=== PATIENT | male | born 1935 | race Hispanic/Latino ===

== ENCOUNTER 2018-02-12 15:38 | Observation (INO) | payer MEDICARE ==
[2018-02-12 15:39] VITALS: BMI 24.9
[2018-02-12] MEDS ORDERED: Sodium Chloride 0.9% 1,000 ML IV STA ×3 (16:26→20:42)
[2018-02-12 16:57] LABS: VENOUS BLOOD GAS BASE EXCESS -1.7 mmol/L (0.0-2.0); VENOUS BLOOD GAS PCO2 38 mmHg (40-60); VENOUS BLOOD GAS PO2 36 mm/Hg (30-55); VENOUS BLOOD PH 7.39 (7.32-7.43)
--- NOTE | 2018-02-12 17:04 | RAD ---
HISTORY: weakness COMPARISON: No prior. FINDINGS: LUNGS: The lungs are well inflated. There is left basilar airspace disease. PLEURA: There is blunting of the left costophrenic angle. No significant right pleural effusion identified, no pneumothorax apparent. CARDIOVASCULAR: Normal. OSSEOUS STRUCTURES: No significant abnormalities. VISUALIZED UPPER ABDOMEN: Normal. OTHER FINDINGS: None. IMPRESSION: Left basilar airspace disease may represent atelectasis or pneumonia. Suspect small left pleural effusion. Follow-up PA and lateral radiographs after medical management are recommended to ensure complete resolution.
--- NOTE | 2018-02-12 17:08 | ED PDOC ---
HPI: General Adult Time Seen by Provider: 02/12/18 16:15 Chief Complaint (Nursing): Headache Chief Complaint (Provider): Headache History Per: Patient History/Exam Limitations: no limitations Onset/Duration Of Symptoms: Days (x2 days) Current Symptoms Are (Timing): Still Present Additional Complaint(s): 82 y/o male presents to the ED complaining of headache and generalized weakness , progressive for last 2 days. Reports that he is lightheaded at times and might pass out due to poor appetite. Also reports chills but no outright fever. Has urinary frequency and excessive thirst. Two days ago he underwent chemo therapy, which he has been in for last 2 months, for lung cancer. Sugar was very high at home (accucheck -500). Denies any further medical complaints. PMD: Aakash Amado MD Past Medical History Reviewed: Historical Data, Nursing Documentation, Vital Signs Vital Signs: Last Vital Signs Temp 98.6 F 02/12/18 15:58 Pulse 107 H 02/12/18 15:58 Resp 23 02/12/18 15:58 BP 160/95 H 02/12/18 15:58 Pulse Ox 98 02/12/18 17:14 - Medical History PMH: Diabetes, HTN, Hypercholesterolemia Other PMH: Lung cancer - Surgical History Other surgeries: Lung surgery, skin biposy, kidney transplant - Family History Family History: States: Unknown Family Hx - Social History Current smoker - smoking cessation education provided: No Alcohol: None Drugs: Denies - Immunization History Hx Tetanus Toxoid Vaccination: No Hx Influenza Vaccination: No Hx Pneumococcal Vaccination: No - Home Medications Home Medications: Ambulatory Orders Medication Instructions Recorded Aspirin 81 mg PO DAILY 09/03/14 Atorvastatin [Lipitor] 20 mg PO DAILY 09/03/14 Clopidogrel [Plavix] 75 mg PO DAILY 09/03/14 Fenofibrate Nanocrystallized 48 mg PO DAILY 09/03/14 [Fenofibrate] Insulin Human NPH/Reg [HumuLIN 30 units SC ACBD 09/03/14 70/30 (NPH/Reg)] Labetalol HCl 150 mg PO BID 09/03/14 Nifedipine [Nifedipine ER] 30 mg PO QPM 09/03/14 Cilostazol [Pletal] 100 mg PO DAILY 07/24/17 Tacrolimus [Prograf Cap] 1 mg PO DAILY 09/17/17 Ciprofloxacin [Cipro] 500 mg PO BID #10 tab 08/10/17 - Allergies Allergies/Adverse Reactions: Allergies Allergy/AdvReac Type Severity Reaction Status Date / Time EGG Allergy ITCHING Verified 08/04/17 15:58 Penicillins Allergy Verified 08/04/17 15:58 Review of Systems ROS Statement: Except As Marked, All Systems Reviewed And Found Negative (As per HPI, otherwise negative) Constitutional: Positive for: Weakness (generalized), Other (loss of appetite) ENT: Positive for: Other (excessive thirst) Genitourinary Male: Positive for: Frequency Neurological: Positive for: Headache, Other (lightheadedness) Physical Exam - Reviewed Nursing Documentation Reviewed: Yes Vital Signs Reviewed: Yes - Physical Exam Appears: Positive for: Non-toxic, No Acute Distress (tired appearing) Skin: Positive for: Warm, Dry, Pallor Eye Exam: Positive for: EOMI, PERRL ENT: Positive for: Pharynx Is (clear), Other (Dry mucous membranes) Neck: Positive for: Painless ROM, Supple Cardiovascular/Chest: Positive for: Regular Rate, Rhythm, Tachycardia. Negative for: Murmur Respiratory: Positive for: Normal Breath Sounds. Negative for: Wheezing Gastrointestinal/Abdominal: Positive for: Soft. Negative for: Tenderness Back: Positive for: Normal Inspection. Negative for: Decreased ROM Extremity: Positive for: Normal ROM. Negative for: Deformity Lymphatic: Negative for: Adenopathy Neurologic/Psych: Positive for: Alert. Negative for: Motor/Sensory Deficits - Laboratory Results Result Diagrams: 02/12/18 16:40 02/12/18 16:40 - ECG ECG Rhythm: Positive for: Sinus Tachycardia, Right Bundle Branch Block O2 Sat by Pulse Oximetry: 98 (RA) Pulse Ox Interpretation: Normal - Radiology X-Ray: Interpreted by Me Medical Decision Making Medical Decision Making: Time: 16:41 Initial Impression: Weakness and hyperglycemia Differential diagnosis: DKA, dehydration, electrolyte abnormality,sepsis, UTI Plan: Type and Screen EKG BNP CMP Lipase Magnesium Phosphorous Troponin I CBC w/ differential PTT Prothrombin Time Chest x-ray Sodium chloride 1L IV Blood culture Urine culture quality assurance monitor IN insertion Influenza A B Urinalysis Reevaluation 1830 Hyperglycemia and tachycardia persist. Additional fluid ordered. 2030 Labs demonstrated hyperglycemia with no ketosis or acidosis. Persistent tachycardia and hyperglycemia despite 2L IVF. Needs hospitalization for continued hydration and glucose control ALEXANDRE pt findings and plan of care. ALEXANDRE Beltran WAREHOUSE ADMINISTRATIVE ASSISTANT for [facility] Scribe Attestation: Documented by Ryan Milner acting as a scribe for Kriss Gamez MD. Scribe Attestation: All medical record entries made by the Scribe were at my direction and personally dictated by me. I have reviewed the chart and agree that the record accurately reflects my personal performance of the history, physical exam, medical decision making, and the department course for this patient. I have also personally directed, reviewed, and agree with the discharge instructions and disposition. Disposition - Clinical Impression Clinical Impression: Dehydration, Hyperglycemia Counseled Patient/Family Regarding: Studies Performed, Diagnosis - Disposition Disposition Time: 20:30 Condition: FAIR - Pt Status Changed To: Hospital Disposition Of: Observation - POA Present On Arrival: Poor Glycemic Control
[2018-02-12 17:16] LABS: BASO % 0.5 % (0.0-2.0); EOS # 0.1 K/uL (0.0-0.7); EOS % 0.7 % (0.0-4.0); HEMOGLOBIN 11.6 g/dL (12.0-18.0); LYMPH # 0.8 K/uL (1.0-4.3); LYMPH % 9.3 % (20.0-40.0); MEAN CELL VOLUME 86.2 fl (80.0-94.0); MEAN CORPUSCULAR HEMOGLOBIN 28.6 pg (27.0-31.0); MEAN CORPUSCULAR HGB CONC 33.2 g/dL (33.0-37.0); MEAN PLATELET VOLUME 8.2 fl (7.2-11.7); MONO # 0.1 K/uL (0.0-0.8); MONO % 1.3 % (0.0-10.0); NEUT # 7.2 K/uL (1.8-7.0); NEUT % 88.2 % (50.0-75.0); PLATELET COUNT 338 K/uL (130-400); RBC 4.07 Mil/uL (4.40-5.90); RED CELL DISTRIBUTION WIDTH 19.2 % (11.5-14.5); WHITE BLOOD COUNT 8.1 K/uL (4.8-10.8)
[2018-02-12 17:33] LABS: B-TYPE NATRIURETIC PEPTIDE 532 pg/ml (0-900)
[2018-02-12 17:38] LABS: INR 1.3 (0.9-1.2); PARTIAL THROMBOPLASTIN TIME 29.5 Seconds (25.6-37.1)
[2018-02-12 18:01] LABS: ALB/GLOB RATIO 1.1 (1.0-2.1); ALBUMIN 3.6 g/dL (3.5-5.0); ALT/SGPT 60 U/L (21-72); AST/SGOT 36 U/L (17-59); BLOOD UREA NITROGEN 22 mg/dl (9-20); CALCIUM 9.1 mg/dL (8.4-10.2); GFR AFRICAN-AMERICAN > 60; GFR NON-AFRICAN AMERICAN > 60; LIPASE 31 U/L (23-300)
[2018-02-12 18:11] LABS: ANISOCYTOSIS SLIGHT; BANDS 2 % (0-2); LYMPHOCYTE 7 % (20-50); NEUTROPHIL 89 % (42-75); PLATELET ESTIMATE NORMAL (NORMAL); POIKILOCYTOSIS SLIGHT; REACTIVE LYMPHOCYTES 2 % (0-0); TOTAL CELLS COUNTED 100
[2018-02-12 18:12] LABS: HYPOCHROMIC SLIGHT; OVALOCYTES SLIGHT
[2018-02-12 18:13] LABS: STOMATOCYTES SLIGHT; TARGET CELLS SLIGHT
[2018-02-12 18:14] LABS: ROULEAUX FORMATION SLIGHT; TEARDROP CELLS SLIGHT; TOXIC GRANULATION PRESENT
[2018-02-12 18:14] LABS: SQUAMOUS EPITHIAL < 1 /hpf (0-5); URINE BILIRUBIN NEGATIVE (NEGATIVE); URINE BLOOD NEGATIVE (NEGATIVE); URINE CLARITY CLEAR (Clear); URINE COLOR YELLOW (YELLOW); URINE GLUCOSE (UA) >=500 mg/dL (Normal); URINE LEUKOCYTE ESTERASE NEG Leu/uL (Negative); URINE PROTEIN NEGATIVE (NEGATIVE); URINE UROBILINOGEN 0.2-1.0 mg/dL (0.2-1.0)
[2018-02-12] MEDS: Sodium Chloride 0.9% 1,000 ML IV SCH (21:30)
[2018-02-12] MEDS: Insulin Regular 100 units/ml SC SCH (23:02)
[2018-02-13 00:36] VITALS: RESP 19; O2SAT 96
[2018-02-13 07:19] LABS: BASO % 0.6 % (0.0-2.0); EOS # 0.1 K/uL (0.0-0.7); EOS % 0.9 % (0.0-4.0); HEMOGLOBIN 10.3 g/dL (12.0-18.0); LYMPH # 0.7 K/uL (1.0-4.3); LYMPH % 11.5 % (20.0-40.0); MEAN CELL VOLUME 85.8 fl (80.0-94.0); MEAN CORPUSCULAR HEMOGLOBIN 28.5 pg (27.0-31.0); MEAN CORPUSCULAR HGB CONC 33.2 g/dL (33.0-37.0); MEAN PLATELET VOLUME 7.9 fl (7.2-11.7); MONO # 0.1 K/uL (0.0-0.8); MONO % 1.9 % (0.0-10.0); NEUT # 5.1 K/uL (1.8-7.0); NEUT % 85.1 % (50.0-75.0); NRBC % 0.1 % (0.0-0.0); RBC 3.62 Mil/uL (4.40-5.90); RED CELL DISTRIBUTION WIDTH 19.5 % (11.5-14.5)
[2018-02-13] MEDS ORDERED: INSULIN REGULAR SC SCH (07:30)
[2018-02-13] MEDS ORDERED: INSULIN ISOPHANE SC SCH (07:30)
[2018-02-13 07:36] LABS: ALBUMIN 3.1 g/dL (3.5-5.0); ALT/SGPT 53 U/L (21-72); AST/SGOT 28 U/L (17-59); BLOOD UREA NITROGEN 14 mg/dl (9-20); CALCIUM 8.4 mg/dL (8.4-10.2); GFR AFRICAN-AMERICAN > 60; GFR NON-AFRICAN AMERICAN > 60
--- NOTE | 2018-02-13 08:01 | CP.PCM.HP ---
History of Present Illness - History of Present Illness History of Present Illness: pt admitted for hyperglycemia/dehydration/weakness. pt is going under chemo for lung mass which last dose was 2 days ago. on steroids for same. at present pt denies weakness, pt also c/o left fore arm sweling, tenderness, erythemaor any other complaints. no f/c n/v/d. bw noted. am labs pending. Present on Admission - Present on Admission Any Indicators Present on Admission: Yes History of Uncontrolled Diabetes: Yes Review of Systems - Constitutional Constitutional: As Per HPI, Weakness - Integumentary Integumentary: As Per HPI, Erythema Past Patient History - Infectious Disease Hx of Infectious Diseases: None - Past Medical History & Family History Past Medical History?: Yes - Past Social History Smoking Status: Never Smoked - CARDIAC Hx Cardiac Disorders: Yes Hx Hypercholesterolemia: Yes Hx Hypertension: Yes - PULMONARY Hx Respiratory Disorders: No Hx Lung Cancer: Yes - NEUROLOGICAL Hx Neurological Disorder: No - HEENT Hx HEENT Problems: No - RENAL Other/Comment: TRANSPLANT R KIDNEY - ENDOCRINE/METABOLIC Hx Diabetes Mellitus Type 1: Yes - HEMATOLOGICAL/ONCOLOGICAL Hx Blood Disorders: No Hx Chemotherapy: Yes - INTEGUMENTARY Hx Dermatological Problems: No Other/Comment: skin biopsy - MUSCULOSKELETAL/RHEUMATOLOGICAL Hx Musculoskeletal Disorders: Yes (GOUT) Hx Falls: No Hx Gout: Yes - GASTROINTESTINAL Hx Gastrointestinal Disorders: No Hx Gastroesophageal Reflux: Yes - GENITOURINARY/GYNECOLOGICAL Hx Genitourinary Disorders: Yes - PSYCHIATRIC Hx Psychophysiologic Disorder: No Hx Substance Use: No - SURGICAL HISTORY Hx Cataract Extraction: Yes (RIGHT EYE) Hx Kidney Transplant: Yes (right kidney transplant) - ANESTHESIA Hx Anesthesia: Yes Hx Anesthesia Reactions: No Hx Malignant Hyperthermia: No Meds Allergies/Adverse Reactions: Allergies Allergy/AdvReac Type Severity Reaction Status Date / Time EGG Allergy ITCHING Verified 08/04/17 15:58 Penicillins Allergy Verified 08/04/17 15:58 Physical Exam - Constitutional Appears: Well, Non-toxic, No Acute Distress - Head Exam Head Exam: ATRAUMATIC, NORMAL INSPECTION, NORMOCEPHALIC - Eye Exam Eye Exam: EOMI, Normal appearance, PERRL Pupil Exam: NORMAL ACCOMODATION, PERRL - ENT Exam ENT Exam: Mucous Membranes Moist, Normal Exam - Neck Exam Neck exam: Positive for: Normal Inspection - Respiratory Exam Respiratory Exam: Clear to Auscultation Bilateral, NORMAL BREATHING PATTERN - Cardiovascular Exam Cardiovascular Exam: REGULAR RHYTHM, RRR, +S1, +S2 - GI/Abdominal Exam GI & Abdominal Exam: Normal Bowel Sounds, Soft. absent: Tenderness - Extremities Exam Extremities exam: Positive for: full ROM, normal capillary refill, normal inspection, pedal pulses present Additional comments: erythema/swelling to left forearm - Back Exam Back exam: FULL ROM, NORMAL INSPECTION - Neurological Exam Neurological exam: Alert, CN II-XII Intact, Normal Gait, Oriented x3, Reflexes Normal - Psychiatric Exam Psychiatric exam: Normal Affect, Normal Mood - Skin Skin Exam: Dry, Intact, Normal Color, Warm Results - Vital Signs Recent Vital Signs: Last Vital Signs Temp 99.0 F 02/13/18 00:00 Pulse 99 H 02/13/18 00:00 Resp 19 02/13/18 00:00 BP 103/72 02/13/18 00:00 Pulse Ox 96 02/13/18 00:00 - Labs Result Diagrams: 02/13/18 05:30 02/13/18 05:30 Labs: Laboratory Results - last 24 hr 02/12/18 02/12/18 02/12/18 16:17 16:40 16:40 WBC 8.1 RBC 4.07 L Hgb 11.6 L Hct 35.1 MCV 86.2 MCH 28.6 MCHC 33.2 RDW 19.2 H Plt Count 338 MPV 8.2 Neut % (Auto) 88.2 H Lymph % (Auto) 9.3 L [place] % (Auto) 1.3 Eos % (Auto) 0.7 Baso % (Auto) 0.5 Neut # (Auto) 7.2 H Lymph # (Auto) 0.8 L [place] # (Auto) 0.1 Eos # (Auto) 0.1 Baso # (Auto) 0.0 Neutrophils % (Manual) 89 H Band Neutrophils % 2 Lymphocytes % (Manual) 7 L Reactive Lymphs % 2 H Monocytes % (Manual) TEST NOT PERFORMED Toxic Granulation Present Platelet Estimate Normal Hypochromasia (manual) Slight Poikilocytosis (manual Slight Anisocytosis (manual) Slight Target Cells Slight Tear Drop Cells Slight Ovalocytes Slight Stomatocytes Slight Rouleaux Slight PT INR APTT pO2 VBG pH VBG pCO2 VBG HCO3 VBG Total CO2 VBG O2 Sat (Calc) VBG Base Excess VBG Potassium Glucose Lactate FiO2 Sodium 134 Potassium 4.3 Chloride 100 Carbon Dioxide 19 L Anion Gap 19 BUN 22 H Creatinine 0.8 Est GFR ( Amer) > 60 Est GFR (Non-Af Amer) > 60 POC Glucose (mg/dL) 442 H* Random Glucose 506 H* Calcium 9.1 Phosphorus 2.4 L Magnesium 1.6 Total Bilirubin 0.9 AST 36 ALT 60 Alkaline Phosphatase 100 Troponin I < 0.0120 NT-Pro-B Natriuret Pep 532 Total Protein 6.8 Albumin 3.6 Globulin 3.2 Albumin/Globulin Ratio 1.1 Lipase 31 Venous Blood Potassium Urine Color Urine Clarity Urine pH Ur Specific [place] Urine Protein Urine Glucose (UA) Urine Ketones Urine Blood Urine Nitrate Urine Bilirubin Urine Urobilinogen Ur Leukocyte Esterase Urine RBC (Auto) Urine Microscopic WBC Ur Squamous Epith Cells Influenza Typ A,B (EIA) Blood Type Antibody Screen BBK History Checked 02/12/18 02/12/18 02/12/18 16:40 16:40 16:40 WBC RBC Hgb Hct MCV MCH MCHC RDW Plt Count MPV Neut % (Auto) Lymph % (Auto) [place] % (Auto) Eos % (Auto) Baso % (Auto) Neut # (Auto) Lymph # (Auto) [place] # (Auto) Eos # (Auto) Baso # (Auto) Neutrophils % (Manual) Band Neutrophils % Lymphocytes % (Manual) Reactive Lymphs % Monocytes % (Manual) Toxic Granulation Platelet Estimate Hypochromasia (manual) Poikilocytosis (manual Anisocytosis (manual) Target Cells Tear Drop Cells Ovalocytes Stomatocytes Rouleaux PT 15.0 H INR 1.3 H APTT 29.5 pO2 VBG pH VBG pCO2 VBG HCO3 VBG Total CO2 VBG O2 Sat (Calc) VBG Base Excess VBG Potassium Glucose Lactate FiO2 Sodium Potassium Chloride Carbon Dioxide Anion Gap BUN Creatinine Est GFR ( Amer) Est GFR (Non-Af Amer) POC Glucose (mg/dL) Random Glucose Calcium Phosphorus Magnesium Total Bilirubin AST ALT Alkaline Phosphatase Troponin I NT-Pro-B Natriuret Pep Total Protein Albumin Globulin Albumin/Globulin Ratio Lipase Venous Blood Potassium Urine Color Urine Clarity Urine pH Ur Specific [place] Urine Protein Urine Glucose (UA) Urine Ketones Urine Blood Urine Nitrate Urine Bilirubin Urine Urobilinogen Ur Leukocyte Esterase Urine RBC (Auto) Urine Microscopic WBC Ur Squamous Epith Cells Influenza Typ A,B (EIA) Negative for flu a/b Blood Type A POSITIVE Antibody Screen Negative BBK History Checked Patient has bt 02/12/18 02/12/18 02/12/18 16:51 17:55 18:24 WBC RBC Hgb Hct MCV MCH MCHC RDW Plt Count MPV Neut % (Auto) Lymph % (Auto) [place] % (Auto) Eos % (Auto) Baso % (Auto) Neut # (Auto) Lymph # (Auto) [place] # (Auto) Eos # (Auto) Baso # (Auto) Neutrophils % (Manual) Band Neutrophils % Lymphocytes % (Manual) Reactive Lymphs % Monocytes % (Manual) Toxic Granulation Platelet Estimate Hypochromasia (manual) Poikilocytosis (manual Anisocytosis (manual) Target Cells Tear Drop Cells Ovalocytes Stomatocytes Rouleaux PT INR APTT pO2 36 VBG pH 7.39 VBG pCO2 38 L VBG HCO3 22.8 VBG Total CO2 24.2 VBG O2 Sat (Calc) 76.5 H VBG Base Excess -1.7 L VBG Potassium 4.2 Glucose 541 H* Lactate 1.9 FiO2 21.0 Sodium 133.0 Potassium Chloride 100.0 Carbon Dioxide Anion Gap BUN Creatinine Est GFR ( Amer) Est GFR (Non-Af Amer) POC Glucose (mg/dL) 340 H Random Glucose Calcium Phosphorus Magnesium Total Bilirubin AST ALT Alkaline Phosphatase Troponin I NT-Pro-B Natriuret Pep Total Protein Albumin Globulin Albumin/Globulin Ratio Lipase Venous Blood Potassium 4.2 Urine Color Yellow Urine Clarity Clear Urine pH 6.0 Ur Specific [place] 1.038 H Urine Protein Negative Urine Glucose (UA) >=500 Urine Ketones Negative Urine Blood Negative Urine Nitrate Negative Urine Bilirubin Negative Urine Urobilinogen 0.2-1.0 Ur Leukocyte Esterase Neg Urine RBC (Auto) 2 Urine Microscopic WBC 2 Ur Squamous Epith Cells < 1 Influenza Typ A,B (EIA) Blood Type Antibody Screen BBK History Checked 02/12/18 02/12/18 02/13/18 20:23 22:46 05:30 WBC 6.0 RBC 3.62 L Hgb 10.3 L Hct 31.0 L MCV 85.8 MCH 28.5 MCHC 33.2 RDW 19.5 H Plt Count 325 MPV 7.9 Neut % (Auto) 85.1 H Lymph % (Auto) 11.5 L [place] % (Auto) 1.9 Eos % (Auto) 0.9 Baso % (Auto) 0.6 Neut # (Auto) 5.1 Lymph # (Auto) 0.7 L [place] # (Auto) 0.1 Eos # (Auto) 0.1 Baso # (Auto) 0.0 Neutrophils % (Manual) Band Neutrophils % Lymphocytes % (Manual) Reactive Lymphs % Monocytes % (Manual) Toxic Granulation Platelet Estimate Hypochromasia (manual) Poikilocytosis (manual Anisocytosis (manual) Target Cells Tear Drop Cells Ovalocytes Stomatocytes Rouleaux PT INR APTT pO2 VBG pH VBG pCO2 VBG HCO3 VBG Total CO2 VBG O2 Sat (Calc) VBG Base Excess VBG Potassium Glucose Lactate FiO2 Sodium Potassium Chloride Carbon Dioxide Anion Gap BUN Creatinine Est GFR ( Amer) Est GFR (Non-Af Amer) POC Glucose (mg/dL) 276 H 296 H Random Glucose Calcium Phosphorus Magnesium Total Bilirubin AST ALT Alkaline Phosphatase Troponin I NT-Pro-B Natriuret Pep Total Protein Albumin Globulin Albumin/Globulin Ratio Lipase Venous Blood Potassium Urine Color Urine Clarity Urine pH Ur Specific [place] Urine Protein Urine Glucose (UA) Urine Ketones Urine Blood Urine Nitrate Urine Bilirubin Urine Urobilinogen Ur Leukocyte Esterase Urine RBC (Auto) Urine Microscopic WBC Ur Squamous Epith Cells Influenza Typ A,B (EIA) Blood Type Antibody Screen BBK History Checked 02/13/18 02/13/18 05:30 05:36 WBC RBC Hgb Hct MCV MCH MCHC RDW Plt Count MPV Neut % (Auto) Lymph % (Auto) [place] % (Auto) Eos % (Auto) Baso % (Auto) Neut # (Auto) Lymph # (Auto) [place] # (Auto) Eos # (Auto) Baso # (Auto) Neutrophils % (Manual) Band Neutrophils % Lymphocytes % (Manual) Reactive Lymphs % Monocytes % (Manual) Toxic Granulation Platelet Estimate Hypochromasia (manual) Poikilocytosis (manual Anisocytosis (manual) Target Cells Tear Drop Cells Ovalocytes Stomatocytes Rouleaux PT INR APTT pO2 VBG pH VBG pCO2 VBG HCO3 VBG Total CO2 VBG O2 Sat (Calc) VBG Base Excess VBG Potassium Glucose Lactate FiO2 Sodium 139 Potassium 3.9 Chloride 106 Carbon Dioxide 20 L Anion Gap 17 BUN 14 Creatinine 0.7 L Est GFR ( Amer) > 60 Est GFR (Non-Af Amer) > 60 POC Glucose (mg/dL) 287 H Random Glucose 280 H Calcium 8.4 Phosphorus Magnesium Total Bilirubin 0.7 AST 28 ALT 53 Alkaline Phosphatase 88 Troponin I NT-Pro-B Natriuret Pep Total Protein 6.1 L Albumin 3.1 L Globulin 3.0 Albumin/Globulin Ratio 1.0 Lipase Venous Blood Potassium Urine Color Urine Clarity Urine pH Ur Specific [place] Urine Protein Urine Glucose (UA) Urine Ketones Urine Blood Urine Nitrate Urine Bilirubin Urine Urobilinogen Ur Leukocyte Esterase Urine RBC (Auto) Urine Microscopic WBC Ur Squamous Epith Cells Influenza Typ A,B (EIA) Blood Type Antibody Screen BBK History Checked Assessment & Plan (1) DVT prophylaxis Assessment and Plan: scd and ae hose ambulation Status: Acute (2) Weakness Assessment and Plan: improving ivf glucose control Status: Acute (3) Dehydration Assessment and Plan: ivf po as nella Status: Acute (4) Hyperglycemia Assessment and Plan: likely r/t steroids ivf, riss, home meds, fsbg Status: Acute (5) Cellulitis of forearm, left Assessment and Plan: bactrim Status: Acute Decision To Admit - Pt Status Changed To: Hospital Disposition Of: Observation - . Bed Request Type: Med/Surg Admitting Physician: Martha Rodriguez
[2018-02-13 08:03] VITALS: BP 143/64; PULSE 98; TEMP 97.9
--- NOTE | 2018-02-13 08:04 | CARD ---
APPROVED REPORT EKG Measurement Heart [id number] [id number] <Conclusion> Sinus tachycardia Right bundle branch block Abnormal ECG
[2018-02-13] MEDS ORDERED: Cilostazol 100 mg Tab UD PO SCH (09:00)
[2018-02-13] MEDS ORDERED: Tmp-Smz 800 mg-160 mg DS Tab PO SCH (09:00)
[2018-02-13] MEDS ORDERED: COLCHICINE 0.6 MG CAPSULE PO SCH (09:00)
[2018-02-13] MEDS ORDERED: Insulin Lispro Mix 75/25 100 units/ml (HumaLog) 10ml SC SCH (09:00)
[2018-02-13] MEDS: Insulin Regular 100 units/ml SC SCH ×2 (09:27→12:05)
[2018-02-13] MEDS: Sodium Chloride 0.9% 1,000 ML IV SCH (09:45)
--- NOTE | 2018-02-13 09:59 | RAD ---
HISTORY: r/o pna on portable cxr, weakness COMPARISON: Chest radiograph dated 02/12/2018 TECHNIQUE: Chest PA and lateral FINDINGS: LUNGS: Left basilar airspace disease redemonstrated. PLEURA: No significant pleural effusion identified. No pneumothorax apparent. CARDIOVASCULAR: Atherosclerotic aortic calcifications. Cardiomediastinal silhouette within normal limits. OSSEOUS STRUCTURES: Unchanged. VISUALIZED UPPER ABDOMEN: Normal. OTHER FINDINGS: None. IMPRESSION: Left basilar airspace disease redemonstrated.
--- NOTE | 2018-02-13 14:06 | CP.PCM.DIS ---
Provider - Provider Date of Admission: 02/12/18 20:42 Attending physician: Martha Rodriguez MD Time Spent in preparation of Discharge (in minutes): 15 Diagnosis - Discharge Diagnosis (1) DVT prophylaxis Status: Acute (2) Weakness Status: Acute (3) Dehydration Status: Acute (4) Hyperglycemia Status: Acute (5) Cellulitis of forearm, left Status: Acute Hospital Course - Lab Results Lab Results: Most Recent Lab Values WBC 6.0 K/uL (4.8-10.8) 02/13/18 05:30 RBC 3.62 Mil/uL (4.40-5.90) L 02/13/18 05:30 Hgb 10.3 g/dL (12.0-18.0) L 02/13/18 05:30 Hct 31.0 % (35.0-51.0) L 02/13/18 05:30 MCV 85.8 fl (80.0-94.0) 02/13/18 05:30 MCH 28.5 pg (27.0-31.0) 02/13/18 05:30 MCHC 33.2 g/dL (33.0-37.0) 02/13/18 05:30 RDW 19.5 % (11.5-14.5) H 02/13/18 05:30 Plt Count 325 K/uL (130-400) 02/13/18 05:30 MPV 7.9 fl (7.2-11.7) 02/13/18 05:30 Neut % (Auto) 85.1 % (50.0-75.0) H 02/13/18 05:30 Lymph % (Auto) 11.5 % (20.0-40.0) L 02/13/18 05:30 [place] % (Auto) 1.9 % (0.0-10.0) 02/13/18 05:30 Eos % (Auto) 0.9 % (0.0-4.0) 02/13/18 05:30 Baso % (Auto) 0.6 % (0.0-2.0) 02/13/18 05:30 Neut # (Auto) 5.1 K/uL (1.8-7.0) 02/13/18 05:30 Lymph # (Auto) 0.7 K/uL (1.0-4.3) L 02/13/18 05:30 [place] # (Auto) 0.1 K/uL (0.0-0.8) 02/13/18 05:30 Eos # (Auto) 0.1 K/uL (0.0-0.7) 02/13/18 05:30 Baso # (Auto) 0.0 K/uL (0.0-0.2) 02/13/18 05:30 Neutrophils % (Manual) 89 % (42-75) H 02/12/18 16:40 Band Neutrophils % 2 % (0-2) 02/12/18 16:40 Lymphocytes % (Manual) 7 % (20-50) L 02/12/18 16:40 Reactive Lymphs % 2 % (0-0) H 02/12/18 16:40 Monocytes % (Manual) TEST NOT PERFORMED 02/12/18 16:40 Toxic Granulation Present 02/12/18 16:40 Platelet Estimate Normal (NORMAL) 02/12/18 16:40 Hypochromasia (manual) Slight 02/12/18 16:40 Poikilocytosis (manual Slight 02/12/18 16:40 Anisocytosis (manual) Slight 02/12/18 16:40 Target Cells Slight 02/12/18 16:40 Tear Drop Cells Slight 02/12/18 16:40 Ovalocytes Slight 02/12/18 16:40 Stomatocytes Slight 02/12/18 16:40 Rouleaux Slight 02/12/18 16:40 PT 15.0 Seconds (9.8-13.1) H 02/12/18 16:40 INR 1.3 (0.9-1.2) H 02/12/18 16:40 APTT 29.5 Seconds (25.6-37.1) 02/12/18 16:40 pO2 36 mm/Hg (30-55) 02/12/18 16:51 VBG pH 7.39 (7.32-7.43) 02/12/18 16:51 VBG pCO2 38 mmHg (40-60) L 02/12/18 16:51 VBG HCO3 22.8 mmol/L 02/12/18 16:51 VBG Total CO2 24.2 mmol/L (22-28) 02/12/18 16:51 VBG O2 Sat (Calc) 76.5 % (40-65) H 02/12/18 16:51 VBG Base Excess -1.7 mmol/L (0.0-2.0) L 02/12/18 16:51 VBG Potassium 4.2 mmol/L (3.6-5.2) 02/12/18 16:51 Sodium 133.0 mmol/L (132-148) 02/12/18 16:51 Chloride 100.0 mmol/L (98-107) 02/12/18 16:51 Glucose 541 mg/dL (75-110) H* 02/12/18 16:51 Lactate 1.9 mmol/L (0.7-2.1) 02/12/18 16:51 FiO2 21.0 % 02/12/18 16:51 Sodium 139 mmol/l (132-148) 02/13/18 05:30 Potassium 3.9 MMOL/L (3.6-5.0) 02/13/18 05:30 Chloride 106 mmol/L (98-107) 02/13/18 05:30 Carbon Dioxide 20 mmol/L (22-30) L 02/13/18 05:30 Anion Gap 17 (10-20) 02/13/18 05:30 BUN 14 mg/dl (9-20) 02/13/18 05:30 Creatinine 0.7 mg/dl (0.8-1.5) L 02/13/18 05:30 Est GFR ( Amer) > 60 02/13/18 05:30 Est GFR (Non-Af Amer) > 60 02/13/18 05:30 POC Glucose (mg/dL) 346 mg/dL (65-110) H 02/13/18 10:45 Random Glucose 280 mg/dL (75-110) H 02/13/18 05:30 Hemoglobin A1c 11.8 % (4.2-6.5) H 02/13/18 05:30 Calcium 8.4 mg/dL (8.4-10.2) 02/13/18 05:30 Phosphorus 2.4 mg/dl (2.5-4.5) L 02/12/18 16:40 Magnesium 1.6 MG/DL (1.6-2.3) 02/12/18 16:40 Total Bilirubin 0.7 mg/dl (0.2-1.3) 02/13/18 05:30 AST 28 U/L (17-59) 02/13/18 05:30 ALT 53 U/L (21-72) 02/13/18 05:30 Alkaline Phosphatase 88 U/L (38-126) 02/13/18 05:30 Troponin I < 0.0120 ng/mL (0.00-0.120) 02/12/18 16:40 NT-Pro-B Natriuret Pep 532 pg/ml (0-900) 02/12/18 16:40 Total Protein 6.1 G/DL (6.3-8.2) L 02/13/18 05:30 Albumin 3.1 g/dL (3.5-5.0) L 02/13/18 05:30 Globulin 3.0 gm/dL (2.2-3.9) 02/13/18 05:30 Albumin/Globulin Ratio 1.0 (1.0-2.1) 02/13/18 05:30 Lipase 31 U/L (23-300) 02/12/18 16:40 Venous Blood Potassium 4.2 mmol/L (3.6-5.2) 02/12/18 16:51 Urine Color Yellow (YELLOW) 02/12/18 17:55 Urine Clarity Clear (Clear) 02/12/18 17:55 Urine pH 6.0 (5.0-8.0) 02/12/18 17:55 Ur Specific [place] 1.038 (1.003-1.030) H 02/12/18 17:55 Urine Protein Negative mg/dL (NEGATIVE) 02/12/18 17:55 Urine Glucose (UA) >=500 mg/dL (Normal) 02/12/18 17:55 Urine Ketones Negative mg/dL (NEGATIVE) 02/12/18 17:55 Urine Blood Negative (NEGATIVE) 02/12/18 17:55 Urine Nitrate Negative (NEGATIVE) 02/12/18 17:55 Urine Bilirubin Negative (NEGATIVE) 02/12/18 17:55 Urine Urobilinogen 0.2-1.0 mg/dL (0.2-1.0) 02/12/18 17:55 Ur Leukocyte Esterase Neg [place]/uL (Negative) 02/12/18 17:55 Urine RBC (Auto) 2 /hpf (0-3) 02/12/18 17:55 Urine Microscopic WBC 2 /hpf (0-5) 02/12/18 17:55 Ur Squamous Epith Cells < 1 /hpf (0-5) 02/12/18 17:55 Influenza Typ A,B (EIA) Negative for flu a/b (NEGATIVE) 02/12/18 16:40 Blood Type A POSITIVE 02/12/18 16:40 Antibody Screen Negative 02/12/18 16:40 BBK History Checked Patient has bt 02/12/18 16:40 - Hospital Course Hospital Course: ivf riss, fsbg,ivf tylenol motrin for headache Discharge Exam - Head Exam Head Exam: ATRAUMATIC, NORMAL INSPECTION, NORMOCEPHALIC Discharge Plan - Discharge Medications Prescriptions: Sulfamethoxazole/Trimethoprim [Bactrim DS Tab] 1 tab PO Q12 #14 tab - Follow Up Plan Condition: FAIR Disposition: HOME/ ROUTINE Instructions: Dehydration, Adult (DC), Hyperglycemia, Adult (DC) Additional Instructions: final dx-lung tumor, uncontrolled dm2 likley r/t steroids, cellulitis f/u pmd, rted prn, meds per medrec meds e-rx follow up with primary Md 1week follow up with [facility] 2 days. Referrals: Aakash Amado MD [Staff Provider] - Elliott Beltran, DNP, REFIN[employer] OPERATOR [place] [Advanced Practice Nurse] -
[2018-02-13] MEDS ORDERED: NIFEdipine 30 mg ER Tab PO SCH (18:00)
== END 2018-02-13 13:26 | disposition home or self-care (01) ==
LOC: H.ER 15:38 → H.ERHOLD 20:42 → H.MEDSURG1 22:35
PROVIDERS: ADMIT Family Medicine; ATTEND Family Medicine
DX: E86.0 Dehydration (principal); I10 Essential (primary) hypertension; K21.9 Gastro-esophageal reflux disease without esophagitis; L03.114 Cellulitis of left upper limb; R63.1 Polydipsia; Z79.02 Long term (current) use of antithrombotics/antiplatelets; Z79.4 Long term (current) use of insulin; Z79.82 Long term (current) use of aspirin; C34.90 Malignant neoplasm of unspecified part of unspecified bronchus or lung; M10.9 Gout, unspecified; Z79.899 Other long term (current) drug therapy; R35.0 Frequency of micturition; E10.65 Type 1 diabetes mellitus with hyperglycemia; E78.00 Pure hypercholesterolemia, unspecified
CPT/HCPCS: 36415; 71045; 71046; 80053; 81003; 82803; 82948; 83036; 83690; 83735; 83880; 84100; 84484; 85025; 85610; 85730; 86850; 86900; 87040; 87086; 87804; 93005; 96360; G0378; J7040; J7507

== ENCOUNTER 2018-06-14 08:14 | Emergency (ER) | payer MEDICARE ==
[2018-06-14 08:15] VITALS: BMI 24.9
--- NOTE | 2018-06-14 09:21 | ED PDOC ---
HPI: CCC, URI, Sore Throat Time Seen by Provider: 06/14/18 08:32 Chief Complaint (Nursing): Cough, Cold, Congestion Chief Complaint (Provider): Sore throat History Per: Patient History/Exam Limitations: no limitations Have you had recent travel within the past 21 days to any of the following countries: [place], [place], [place] or [place]?: No Onset/Duration Of Symptoms: Days (1) Current Symptoms Are (Timing): Still Present Location Of Pain: Ear(s), Throat Sick Contacts (Context): None Associated Symptoms: Sore Throat, Cough. denies: Fever, Chills, Neck Pain, Vomiting, Diarrhea Ear Symptoms: Bilateral: Ear Pain Additional History Per: Patient Additional Complaint(s): 82yo male, history of renal transplant, partial left lung lobectomy, comes to ER with complaint of sore throat and left ear pain x 1 day. Patient states he is having a "heavy cold" with associated cough. Patient states he is also mildly short of breath but reports it is chronic due to his lung resection. Otherwise, patient denies any sick contacts, recent travels, fever, chills, chest pain, and offers no additional medical complaints. Past Medical History Reviewed: Historical Data, Nursing Documentation, Vital Signs Vital Signs: Last Vital Signs Temp 98.0 F 06/14/18 09:19 Pulse 84 06/14/18 09:19 Resp 18 06/14/18 09:19 BP 127/71 06/14/18 09:19 Pulse Ox 96 06/14/18 09:29 - Medical History PMH: Diabetes, HTN, Hypercholesterolemia - Surgical History Other surgeries: renal transplant, partial left lung resection - Family History Family History: States: No Known Family Hx, Unknown Family Hx - Immunization History Hx Tetanus Toxoid Vaccination: No Hx Influenza Vaccination: No Hx Pneumococcal Vaccination: No - Home Medications Home Medications: Ambulatory Orders Medication Instructions Recorded Aspirin 81 mg PO DAILY 09/03/14 Atorvastatin [Lipitor] 20 mg PO DAILY 09/03/14 Clopidogrel [Plavix] 75 mg PO DAILY 09/03/14 Fenofibrate Nanocrystallized 48 mg PO DAILY 09/03/14 [Fenofibrate] Insulin Human NPH/Reg [HumuLIN 30 units SC HS 09/03/14 70/30 (NPH/Reg)] Labetalol HCl 300 mg PO BID 09/03/14 Nifedipine [Nifedipine ER] 30 mg PO QPM 09/03/14 Cilostazol [Pletal] 100 mg PO BID 07/24/17 Tacrolimus [Prograf Cap] 2 cap PO BID 07/24/17 Colchicine [Mitigare] 0.6 mg PO DAILY 02/12/18 Sulfamethoxazole/Trimethoprim 1 tab PO Q12 #14 tab 02/13/18 [Bactrim DS Tab] Promethazine DM [Phenergan DM 10 ml PO Q8H PRN #120 ml 06/14/18 Syrup] Sulfamethoxazole/Trimethoprim 1 tab PO BID #14 tab 06/14/18 [Bactrim DS 800 mg-160 mg] - Allergies Allergies/Adverse Reactions: Allergies Allergy/AdvReac Type Severity Reaction Status Date / Time EGG Allergy ITCHING Verified 08/04/17 15:58 Penicillins Allergy Verified 08/04/17 15:58 Review of Systems ROS Statement: Except As Marked, All Systems Reviewed And Found Negative Constitutional: Negative for: Fever, Chills ENT: Positive for: Ear Pain (right), Throat Pain Cardiovascular: Negative for: Chest Pain Respiratory: Positive for: Cough, Shortness of Breath (chronic) Gastrointestinal: Negative for: Abdominal Pain Physical Exam - Reviewed Nursing Documentation Reviewed: Yes Vital Signs Reviewed: Yes - Physical Exam Appears: Positive for: Non-toxic Head Exam: Positive for: ATRAUMATIC, NORMAL INSPECTION, NORMOCEPHALIC Skin: Positive for: Normal Color Eye Exam: Positive for: Normal appearance ENT: Positive for: TM Is/Are (left TM erythematous; right TM normal). Negative for: Pharyngeal Erythema, Tonsillar Exudate, Tonsillar Swelling Neck: Positive for: Normal, Painless ROM, Supple Cardiovascular/Chest: Positive for: Regular Rate, Rhythm, Chest Non Tender. Negative for: Tachycardia Respiratory: Positive for: Crackles (faint crackles bilaterally, left > right). Negative for: Respiratory Distress, Other (tachypnea, labored breathing.) Gastrointestinal/Abdominal: Positive for: Soft. Negative for: Tenderness Back: Positive for: Normal Inspection Extremity: Positive for: Normal ROM. Negative for: Pedal Edema Neurologic/Psych: Positive for: Alert, Oriented. Negative for: Motor/Sensory Deficits - ECG O2 Sat by Pulse Oximetry: 96 (RA) Pulse Ox Interpretation: Normal Medical Decision Making Medical Decision Making: Impression: Left otitis media Plan: -- Patient to be discharged home with prescription for antibiotics and cough medication. Instructed to take medications as prescribed and to follow up wit PMD at [facility] in 2-3 days. Scribe Attestation: Documented by Whit Parks, acting as a scribe for Rosa Aleman MD. Provider Scribe Attestation: All medical record entries made by the Scribe were at my direction and personally dictated by me. I have reviewed the chart and agree that the record accurately reflects my personal performance of the history, physical exam, medical decision making, and the department course for this patient. I have also personally directed, reviewed, and agree with the discharge instructions and disposition. Disposition - Clinical Impression Clinical Impression: Otitis media, Left otitis media - Patient ED Disposition Is Patient to be Admitted: No Doctor Will See Patient In The: Office Counseled Patient/Family Regarding: Diagnosis, Need For Followup, Rx Given - [facility]position [facility] Disposition: Routine/Home Disposition Time: 09:00 Condition: STABLE Prescriptions: Promethazine DM [Phenergan DM Syrup] 10 ml PO Q8H PRN #120 ml PRN Reason: Cough Sulfamethoxazole/Trimethoprim [Bactrim DS 800 mg-160 mg] 1 tab PO BID #14 tab Instructions: Ear Infections (Otitis Media) Forms: [facility] (Swedish) - POA Present On Arrival: None
[2018-06-14 09:22] VITALS: BP 127/71; PULSE 84; RESP 18; TEMP 98; O2SAT 96
== END 2018-06-14 09:36 | disposition home or self-care (01) ==
LOC: H.ER 08:14
DX: H66.92 Otitis media, unspecified, left ear (principal); Z87.891 Personal history of nicotine dependence

== ENCOUNTER 2018-09-07 02:54 | Emergency (ER) | payer MEDICARE ==
[2018-09-07 02:55] VITALS: BMI 24.9
[2018-09-07 03:19] VITALS: BP 152/70; PULSE 70; RESP 16; TEMP 98.6; O2SAT 98
[2018-09-07] MEDS ORDERED: Sodium Chloride 0.9% 1,000 ML IV STA (04:04)
--- NOTE | 2018-09-07 04:20 | ED PDOC ---
Hyperglycemia/Hypoglycemia Time Seen by Provider: 09/07/18 03:50 Chief Complaint (Nursing): High Blood Sugar Chief Complaint (Provider): elevated blood sugar History Per: Patient History/Exam Limitations: no limitations Onset/Duration Of Symptoms: Days Current Symptoms Are (Timing): Still Present Current Diabetic Medications: Insulin : The patient does not have any of the infectious symptoms listed except for those marked. Additional Complaint(s): 82 y/o male presents for evaluation of elevate blood sugars. Patient states his doctor switched his insulin Humulin to Tresiba about 2 weeks ago due to persistent elevated glucose levels. Patient states levels have still been consistently elevated in the 300's and 400's. Patient states he went to his primary doctor yesterday to follow up on the new medication and blood was drawn and he received a phone call at 2am telling him that his glucose was 526 and to go to the ED. Patient denies headache, dizziness, vision changes, nausea/vomiting, chest pain, shortness of breath, palpitations, abdominal pain, urinary symptoms. Past Medical History Reviewed: Historical Data, Nursing Documentation, Vital Signs Vital Signs: Last Vital Signs Temp 98.6 F 09/07/18 03:15 Pulse 70 09/07/18 03:15 Resp 16 09/07/18 03:15 BP 152/70 H 09/07/18 03:15 Pulse Ox 98 09/07/18 03:15 - Medical History PMH: Diabetes, HTN, Hypercholesterolemia - Surgical History Other surgeries: kidney transplant - Family History Family History: States: Unknown Family Hx - Immunization History Hx Tetanus Toxoid Vaccination: No Hx Influenza Vaccination: No Hx Pneumococcal Vaccination: No - Home Medications Home Medications: Ambulatory Orders Medication Instructions Recorded Aspirin 81 mg PO DAILY 09/03/14 Atorvastatin [Lipitor] 20 mg PO DAILY 09/03/14 Clopidogrel [Plavix] 75 mg PO DAILY 09/03/14 Fenofibrate Nanocrystallized 48 mg PO DAILY 09/03/14 [Fenofibrate] Insulin Human NPH/Reg [HumuLIN 30 units SC HS 09/03/14 70/30 (NPH/Reg)] Labetalol HCl 300 mg PO BID 09/03/14 Nifedipine [Nifedipine ER] 30 mg PO QPM 09/03/14 Cilostazol [Pletal] 100 mg PO BID 07/24/17 Tacrolimus [Prograf Cap] 2 cap PO BID 07/24/17 Colchicine [Mitigare] 0.6 mg PO DAILY 02/12/18 Sulfamethoxazole/Trimethoprim 1 tab PO Q12 #14 tab 02/13/18 [Bactrim DS Tab] Promethazine DM [Phenergan DM 10 ml PO Q8H PRN #120 ml 06/14/18 Syrup] Sulfamethoxazole/Trimethoprim 1 tab PO BID #14 tab 06/14/18 [Bactrim DS 800 mg-160 mg] - Allergies Allergies/Adverse Reactions: Allergies Allergy/AdvReac Type Severity Reaction Status Date / Time EGG Allergy ITCHING Verified 09/07/18 03:14 Penicillins Allergy RASH Verified 09/07/18 03:14 Review of Systems ROS Statement: Except As Marked, All Systems Reviewed And Found Negative Physical Exam - Reviewed Nursing Documentation Reviewed: Yes Vital Signs Reviewed: Yes - Physical Exam Appears: Positive for: Well, Non-toxic, No Acute Distress Head Exam: Positive for: ATRAUMATIC, NORMAL INSPECTION, NORMOCEPHALIC Skin: Positive for: Normal Color Eye Exam: Positive for: Normal appearance ENT: Positive for: Normal ENT Inspection Cardiovascular/Chest: Positive for: Regular Rate, Rhythm Respiratory: Positive for: Normal Breath Sounds Gastrointestinal/Abdominal: Positive for: Normal Exam Back: Positive for: Normal Inspection Extremity: Positive for: Normal ROM Neurologic/Psych: Positive for: Alert, Oriented (x3) - ECG O2 Sat by Pulse Oximetry: 98 - Progress ED Course And Treament: labs, IV fluids, urine Disposition - Clinical Impression Clinical Impression: Hyperglycemia - Patient ED Disposition Is Patient to be Admitted: No - Disposition Disposition Time: 05:00 Condition: STABLE
[2018-09-07 04:35] LABS: BASO % 0.7 % (0.0-2.0); EOS # 0.2 K/uL (0.0-0.7); EOS % 2.5 % (0.0-4.0); HEMOGLOBIN 14.5 g/dL (12.0-18.0); LYMPH # 2.3 K/uL (1.0-4.3); LYMPH % 34.4 % (20.0-40.0); MEAN CELL VOLUME 85.9 fl (80.0-94.0); MEAN CORPUSCULAR HEMOGLOBIN 28.9 pg (27.0-31.0); MEAN CORPUSCULAR HGB CONC 33.7 g/dL (33.0-37.0); MEAN PLATELET VOLUME 9.2 fl (7.2-11.7); MONO # 0.7 K/uL (0.0-0.8); MONO % 10.8 % (0.0-10.0); NEUT # 3.5 K/uL (1.8-7.0); NEUT % 51.6 % (50.0-75.0); NRBC % 0.1 % (0.0-0.0); RBC 5.02 Mil/uL (4.40-5.90); RED CELL DISTRIBUTION WIDTH 15.2 % (11.5-14.5); WHITE BLOOD COUNT 6.8 K/uL (4.8-10.8)
[2018-09-07 04:57] LABS: ALB/GLOB RATIO 1.2 (1.0-2.1); ALBUMIN 4.2 g/dL (3.5-5.0); BLOOD UREA NITROGEN 42 mg/dl (9-20); CALCIUM 9.5 mg/dL (8.4-10.2); GFR NON-AFRICAN AMERICAN > 60
[2018-09-07 04:59] LABS: ALT/SGPT 33 U/L (21-72); AST/SGOT 23 U/L (17-59)
--- NOTE | 2018-09-07 05:11 | ED PDOC ---
- Laboratory Results Result Diagrams: 09/07/18 04:10 09/07/18 04:10 - ECG O2 Sat by Pulse Oximetry: 98 Medical Decision Making Medical Decision Makin Patient care endorsed from DIONTE Montejo to this provider pending labs and reevaluation. pt reevaluated, feels better sugar still in 300s ordered insulin once sugar comes down pt can be dc home w outpt folow up Scribe Attestation: Documented by Antonina Aguiar, acting as a scribe for Radha Rincon MD. Provider Scribe Attestation: All medical record entries made by the Scribe were at my direction and pe rsonally dictated by me. I have reviewed the chart and agree that the record accurately reflects my personal performance of the history, physical exam, medical decision making, and the department course for this patient. I have also personally directed, reviewed, and agree with the discharge instructions and disposition. Disposition Counseled Patient/Family Regarding: Studies Performed, Diagnosis, Need For Followup - Clinical Impression Clinical Impression: Hyperglycemia - POA Present On Arrival: None - Disposition Disposition: Routine/Home Disposition Time: 05:45 Condition: IMPROVED Additional Instructions: follow up with your doctor at [facility] in 1-2 days for recheck of your sugar and reevaluation return to the ED with any worsening or concerning symptoms Instructions: Hyperglycemia, Adult (DC) Forms: [employer] ([place])
[2018-09-07] MEDS ORDERED: Insulin Regular 100 units/ml SC STA (05:35)
[2018-09-07] MEDS ORDERED: Insulin Regular 100 units/ml ONE (05:45)
== END 2018-09-07 06:27 | disposition home or self-care (01) ==
LOC: H.ER 02:54
DX: E11.65 Type 2 diabetes mellitus with hyperglycemia (principal); Z74.9 Problem related to care provider dependency, unspecified; E78.00 Pure hypercholesterolemia, unspecified; I10 Essential (primary) hypertension; Z94.0 Kidney transplant status; Z88.0 Allergy status to penicillin
CPT/HCPCS: 80053; 82948; 85025; 96360; 96372; 99283; J7030